=== PATIENT | male | born 1965 | race Caucasian/White ===

== ENCOUNTER 2018-10-02 09:07 | Emergency (ER) | payer BC ==
[2018-10-02] MEDS ORDERED: NORMAL SALINE 1000 ML 1,000 ML IV ONE (09:20)
--- NOTE | 2018-10-02 09:20 | ER Document Report ---
ED Medical Screen (RME) - General Chief Complaint: Headache Stated Complaint: HEADACHE, RINGING IN EARS Time Seen by Provider: 10/02/18 09:15 Notes: Patient is a 53-year-old male that presents to the emergency department for chief complaint of headache. Patient reports his been having ringing in his ears for about 3 months now, but started having headaches more recently, and now the past 2 days had some pain in his neck, he describes a headache is severe, no prior history of headaches until most recently, he is not waking up every 2 hours with a headache, Motrin initially was helping but it is not now. ROS: Other than noted above, the 12 point review of systems was reviewed with the patient and were negative, all pertinent findings are included in the HPI. PHYSICAL EXAMINATION: Vital signs reviewed. GENERAL: Well-appearing, well-nourished and in no acute distress. HEAD: Atraumatic, normocephalic. EYES: Pupils equal round extraocular movements intact, conjunctiva are normal. ENT: Nares patent NECK: Normal range of motion CV: Heart regular rate and rhythm LUNGS: No respiratory distress Musculoskeletal: Normal range of motion NEUROLOGICAL: Normal speech PSYCH: Normal mood, normal affect. MDM: Patient seen and examined for rapid initial assessment. Vital signs reviewed. A comprehensive ED assessment and evaluation of the patient, analysis of test results and completion of the medical decision making process will be conducted by additional ED providers. *Note is created using voice recognition software and may contain spelling, syntax or grammatical errors. TRAVEL OUTSIDE OF THE [place] IN LAST 30 DAYS: No - Related Data Allergies/Adverse Reactions: No Known Allergies Allergy (Verified 10/02/18 09:09) Past Medical History - Social History Chew tobacco use (# tins/day): No Drug Abuse: None Renal/ Medical History: Denies: Hx Peritoneal Dialysis Past Surgical History: Reports: Hx Orthopedic Surgery Physical Exam - Vital signs Vitals: Temp Pulse Resp BP Pulse Ox 97.4 F 101 H 20 169/112 H 97 10/02/18 09:13 10/02/18 09:13 10/02/18 09:13 10/02/18 09:13 10/02/18 09:13 Course - Vital Signs Vital signs: Temp Pulse Resp BP Pulse Ox 97.4 F 101 H 20 169/112 H 97 10/02/18 09:13 10/02/18 09:13 10/02/18 09:13 10/02/18 09:13 10/02/18 09:13
[2018-10-02] MEDS ORDERED: DEXAMETHASONE SOD PHOS INJ 10 MG/1 ML VIAL IV ONE (09:23)
[2018-10-02] MEDS ORDERED: MAGNESIUM SULFATE/D5W 1 GM/100 ML RTUPB IV ONE (09:23)
[2018-10-02] MEDS ORDERED: METOCLOPRAMIDE HCL INJ/PF 10 MG/2 ML SDV IV ONE (09:23)
[2018-10-02 10:15] LABS: ABSOLUTE EOSINOPHILS # (AUTO) 0.3 10^3/uL (0.0-0.6); ABSOLUTE MONOCYTES (AUTO) 0.3 10^3/uL (0.1-1.4); ABSOLUTE NEUT (AUTO) 3.9 10^3/uL (1.7-8.2); BASOPHILS % (AUTO) 0.8 % (0-2); HEMATOCRIT 48.6 % (37.9-51.0); HEMOGLOBIN 17.4 g/dL (13.5-17.0); LYMPHOCYTES % (AUTO) 18.1 % (13-45); MEAN CORPUSCULAR HEMOGLOBIN 30.3 pg (27.0-33.4); MEAN CORPUSCULAR HGB CONC 35.8 g/dL (32.0-36.0); MEAN CORPUSCULAR VOLUME 85 fl (80-97); PLATELET COUNT 278 10^3/uL (150-450); RED BLOOD COUNT 5.74 10^6/uL (4.35-5.55); RED CELL DISTRIBUTION WIDTH 13.4 % (11.5-14.0); SEGMENTED NEUTROPHILS % (AUTO) 70.1 % (42-78); TOTAL CELLS COUNTED % (AUTO) 100 %; WHITE BLOOD COUNT 5.6 10^3/uL (4.0-10.5)
--- NOTE | 2018-10-02 10:23 | RADIOLOGY REPORT (SQ) ---
EXAM DESCRIPTION: CT HEAD WITHOUT COMPLETED DATE/TIME: 10/02/2018 9:44 am REASON FOR STUDY: headache COMPARISON: None. TECHNIQUE: Axial images acquired through the brain without intravenous contrast. Images reviewed wi th bone, brain and subdural windows. Additional sagittal and coronal reconstructions were generated. Images stored on PACS. All CT scanners at this facility use dose modulation, iterative reconstruction, and/or weight based d osing when appropriate to reduce radiation dose to as low as reasonably achievable (ALARA). [facility]: Dose Right [facility]: CareDose [facility]: Dose Right [facility]: Teradose 4D [facility]: [employer] RADIATION DOSE: CT Rad equipment meets quality standard of care and radiation dose reduction techniq ues were employed. CTDIvol: 53.2 mGy. DLP: 964 mGy-cm. mGy. LIMITATIONS: None. FINDINGS: VENTRICLES: Normal size and contour. CEREBRUM: No masses. No hemorrhage. No midline shift. No evidence for acute infarction. Normal gra y/white matter differentiation. No areas of low density in the white matter. CEREBELLUM: No masses. No hemorrhage. No alteration of density. No evidence for acute infarction. EXTRAAXIAL SPACES: No fluid collections. No masses. ORBITS AND GLOBE: No intra- or extraconal masses. Normal contour of globe without masses. CALVARIUM: No fracture. PARANASAL SINUSES: No fluid or mucosal thickening. SOFT TISSUES: No mass or hematoma. OTHER: No other significant finding. IMPRESSION: No acute intracranial pathology. No noncontrast CT findings to explain headache. EVIDENCE OF ACUTE STROKE: NO. COMMENT: Quality ID # [id number]: Final reports with documentation of one or more dose reduction techniques (e.g., Automated exposure control, adjustment of the mA and/or kV according to patient size, use of iterative reconstruction technique) TECHNICAL DOCUMENTATION: JOB ID: [id number] [employer]- All Rights Reserved Reading location - IP/workstation name: [email or web address]
[2018-10-02 10:31] LABS: ANION GAP 9 (5-19); BLOOD UREA NITROGEN 17 mg/dL (7-20); CARBON DIOXIDE 26 mmol/L (22-30); CHLORIDE 102 mmol/L (98-107); GLUCOSE 215 mg/dL (75-110); POTASSIUM 3.6 mmol/L (3.6-5.0); SODIUM 137.4 mmol/L (137-145)
--- NOTE | 2018-10-02 10:31 | ER Document Report ---
ED Headache - General Chief Complaint: Headache Stated Complaint: HEADACHE, RINGING IN EARS Time Seen by Provider: 10/02/18 09:15 Primary Care Provider: [facility] [Provider Group] - Follow up tomorrow BRIANNE WILSON MD [NO LOCAL MD] - Follow up as needed Mode of Arrival: Ambulatory Information source: Patient Notes: Patient presents complaining of headache. Patient states that the headache started 3 weeks ago and was initially to the occipital area and would come and go multiple times each day. Patient states the headache became constant 3 days ago and reports global headache pain at this time. Patient does complain of nausea. Patient denies any vomiting. Patient does report some mild photophobia and phonophobia. Patient denies any head injury. Patient denies any family history of aneurysm. Patient does report that his brother has had a CVA when he was the patient's same age. Patient denies any previous history of headaches. Patient additionally complains of ringing in his ears for the past 3 months. Patient states the ringing has been a constant. Patient states that he does work around loud noises at work. TRAVEL OUTSIDE OF THE [place] IN LAST 30 DAYS: No - HPI Patient complains to provider of: Headache Onset: Other - 3 weeks Timing: Worse Quality of pain: Pressure, Throbbing Pain Level: 5 Associated symptoms: Nausea/vomiting - Nausea, Photophobia. denies: Dizzy, Fever, Neck pain, Stiff neck Exacerbated by: Light, Noise - Related Data Allergies/Adverse Reactions: No Known Allergies Allergy (Verified 10/02/18 09:09) Past Medical History - General Information source: Patient - Social History Smoking Status: Current Every Day Smoker Chew tobacco use (# tins/day): No Smoking Education Provided: Yes Drug Abuse: None Occupation: [employer] Family History: None Patient has suicidal ideation: No Patient has homicidal ideation: No - Medical History Medical History: Negative Renal/ Medical History: Denies: Hx Peritoneal Dialysis Past Surgical History: Reports: Hx Orthopedic Surgery Review of Systems - Review of Systems Constitutional: No symptoms reported. denies: Fever, Recent illness EENT: Other - ringing in ears x 3 months. denies: Nose congestion, Nose discharge Cardiovascular: No symptoms reported. denies: Dizziness, Lightheaded Respiratory: No symptoms reported. denies: Cough, Short of breath Gastrointestinal: No symptoms reported, Nausea. denies: Abdominal pain, Vomiting Genitourinary: No symptoms reported Male Genitourinary: No symptoms reported Musculoskeletal: Neck pain - Lateral neck discomfort. denies: Back pain Skin: No symptoms reported. denies: Rash Hematologic/Lymphatic: No symptoms reported Neurological/Psychological: Headaches. denies: Confusion, Weakness, Lost consciousness Physical Exam - Vital signs Vitals: Temp Pulse Resp BP Pulse Ox 97.4 F 101 H 20 169/112 H 97 10/02/18 09:13 10/02/18 09:13 10/02/18 09:13 10/02/18 09:13 10/02/18 09:13 - General General appearance: Appears well, Alert In distress: None - HEENT Head: Normocephalic, Atraumatic Eyes: Normal Conjunctiva: Normal Extraocular movements intact: Yes Eyelashes: Normal Pupils: PERRL Fundascopic: Normal Nerve palsy: No Visual singh normal: Yes Ears: Normal External canal: Normal Tympanic membrane: Normal Nasal: Normal Mouth/Lips: Normal Mucous membranes: Normal Pharynx: Normal. No: Erythema Neck: Normal, Supple. No: Brudzinski, Lymphadenopathy, Meningismus - Respiratory Respiratory status: No respiratory distress Chest status: Nontender Breath sounds: Normal. No: Rales, Rhonchi, Stridor, Wheezing Chest palpation: Normal - Cardiovascular Rhythm: Regular Heart sounds: S1 appreciated, S2 appreciated Murmur: No - Abdominal Inspection: Normal Distension: No distension Bowel sounds: Normal Tenderness: Nontender - Back Back: Normal, Nontender. No: CVA tenderness - Extremities General upper extremity: Normal inspection, Nontender, Normal ROM General lower extremity: Normal inspection, Nontender, Normal ROM - Neurological Neuro grossly intact: Yes Cognition: Normal Orientation: AAOx4 Rachelle Coma Scale Eye Opening: Spontaneous Rachelle Coma Scale Verbal: Oriented Rachelle Coma Scale Motor: Obeys Commands Rachelle Coma Scale Total: 15 Speech: Normal. No: Dysarthria, Expressive aphasia, Receptive aphasia Cranial nerves: Normal. No: Facial palsy, Gaze palsy, Sensory deficit, Tongue deviation Cerebellar coordination: Normal, Heel-rust, Finger-nose rhombey, Rapid alt. movements Motor strength normal: LUE, RUE, LLE, RLE Additional motor exam normals: Equal genetic supervisor. No: Weakness Sensory: Normal - Psychological Associated symptoms: Normal affect, Normal mood - Skin Skin Temperature: Warm Skin Moisture: Dry Skin Color: Normal Course - Re-evaluation Re-evalutation: 10/02/18 11:[address] [place] who states that patient does not have any findings worrisome for CVA or aneurysm at this time. 10/02/18 11:43 Patient reports headache pain is down to a 3/5 scale. 10/02/18 12:32 Patient reports that headache pain is almost resolved at this time. Patient without any acute findings on CT scan here today. Dr. Debora Williamson was consulted and did evaluate patient. Discussed with patient the concern about not being able to completely rule out subarachnoid hemorrhage without performing a lumbar puncture. Risks versus benefits were discussed with patient and patient declines LP at this time. Patient does have findings that support tension headache given the left-sided posterior neck muscle tenderness at insertion point. Dr. Williamson does not recommend any additional testing at this time. Patient is agreeable with discharge plan of care at this time. The patient presents with headache without signs of stroke, infection, or other serious etiology. The patient is neurologically intact. Given the extremely low risk of these diagnoses further testing and evaluation for these possibilities does not appear to be indicated at this time. The patient has been instructed to re turn tomorrow for repeat examination or sooner for any worsening of symptoms. 10/02/18 13:01 RN reports that she missed the order for the additional pain medication prior to patient's discharge. - Vital Signs Vital signs: Temp Pulse Resp BP Pulse Ox 98.0 F 73 20 197/118 H 89 L 10/02/18 12:51 10/02/18 12:51 10/02/18 09:13 10/02/18 12:51 10/02/18 12:51 - Laboratory Result Diagrams: 10/02/18 10:00 10/02/18 10:00 Laboratory results interpreted by me: 10/02/18 10/02/18 10:00 10:00 RBC 5.74 H Hgb 17.4 H Glucose 215 H 10/02/18 12:32 Labs- Entire Visit 10/02/18 10/02/18 10:00 10:00 WBC 5.6 RBC 5.74 H Hgb 17.4 H Hct 48.6 MCV 85 MCH 30.3 MCHC 35.8 RDW 13.4 Plt Count 278 Seg Neutrophils % 70.1 Lymphocytes % 18.1 Monocytes % 6.0 Eosinophils % 5.0 Basophils % 0.8 Absolute Neutrophils 3.9 Absolute Lymphocytes 1.0 Absolute Monocytes 0.3 Absolute Eosinophils 0.3 Absolute Basophils 0.0 Sodium 137.4 Potassium 3.6 Chloride 102 Carbon Dioxide 26 Anion Gap 9 BUN 17 Creatinine 1.25 Est GFR ( Amer) > 60 Est GFR (Non-Af Amer) > 60 Glucose 215 H Calcium 10.0 Magnesium 2.1 - Diagnostic Test Radiology reviewed: Reports reviewed Discharge - Discharge Clinical Impression: Elevated blood pressure reading, Elevated blood sugar Headache Qualifiers: Headache type: unspecified Headache chronicity pattern: unspecified pattern Intractability: not intractable Qualified Code(s): R51 - Headache Condition: Stable Disposition: HOME, SELF-CARE Instructions: Headache ([facility]), Reglan ([facility]), Toradol Injection ([facility]) Additional Instructions: Return tomorrow for repeat examination, or immediately for any new or worsening symptoms Followup with your primary care provider, call tomorrow to make a followup appointment Your blood pressure and blood sugar were elevated today. You should follow-up with your primary doctor to have these rechecked this week. Eat a low sodium, low concentrated sweets diet. Prescriptions: Metaxalone [Skelaxin 800 mg Tablet] 800 mg PO ASDIR PRN #15 tablet PRN Reason: Naproxen [Naprosyn 250 Nmg Tablet] 1 tab PO BID #14 tablet Forms: Smoking Cessation Education, Return to Work Referrals: BRIANNE WILSON MD [NO LOCAL MD] - Follow up as needed [facility] [[facility] - Follow up tomorrow
[2018-10-02] MEDS ORDERED: DIPHENHYDRAMINE HCL 50 MG/ML VIAL IV ONE (10:39)
--- NOTE | 2018-10-02 11:31 | RADIOLOGY REPORT (SQ) ---
EXAM DESCRIPTION: CTA HEAD; CTA NECK COMPLETED DATE/TIME: 10/02/2018 11:14 am REASON FOR STUDY: MERCER, ringing in ears COMPARISON: None. TECHNIQUE: Post IV contrast scanning, thin section axial imaging through the brain to evaluate the a rterial structures. Source and MIP images are saved and reviewed on PACS. Advanced 3D imaging as volume-rendering, MIPs, SSD performed? yes Post IV contrast scanning, thin section axial imaging through the neck and carotid bifurcations to ev aluate the arterial structures. Source and MIP images are saved and reviewed on PACS. Advanced 3D imaging as volume-rendering, MIPs, SSD performed? yes All CT scanners at this facility use dose modulation, iterative reconstruction, and/or weight based d osing when appropriate to reduce radiation dose to as low as reasonably achievable (ALARA). [facility]: Dose Right [facility]: CareDose [facility]: Dose Right [facility]: Teradose 4D [facility]: [employer] CONTRAST TYPE AND DOSE: contrast/concentration: Isovue 350.00 mg/ml; Total Contrast Delivered: 70.0 ml; Total Saline Delivered: 75.0 ml RENAL FUNCTION: Creatinine 1.25 RADIATION DOSE: 45 mGy LIMITATIONS: None. FINDINGS: AORTIC ARCH: Discrete origins of the right brachiocephalic artery, left common carotid, a nd left subclavian arteries. No thoracic aortic dissection in the field of view. Adjacent mediastin al structures and lung apices unremarkable. RIGHT EXTRACRANIAL CAROTID: Widely patent. No stenosis at the right carotid bifurcation. No CTA ev idence of cervical carotid dissection. LEFT EXTRACRANIAL CAROTID: Widely patent. No stenosis at the left carotid bifurcation. No CTA evid ence of cervical carotid dissection. RIGHT CERVICAL VERTEBRAL ARTERY: Widely patent. No dissection. LEFT CERVICAL VERTEBRAL ARTERY: Widely patent. No dissection. [place]: The anterior, middle, posterior cerebral arteries are all patent. No evidence of a neurysm or focal stenosis. POSTERIOR CIRCULATION: The distal vertebral arteries are patent as is the basilar artery. No aneurysm . BRAIN: No gross enhancing lesions as visualized. The superior cerebral hemispheres are not included in the field of view. BONES: Intact as visualized. SINUSES: No fluid or mucosal thickening. Mastoid air cells are clear. OTHER: Neck soft tissues are unremarkable. Cervical spine degenerative disc changes at C5-6 and C6-7 Report discussed with Jyoti Haddad in the emergency room IMPRESSION: NO CTA EVIDENCE OF STENOSIS OR ANEURYSM OF THE [place]. NO CTA EVIDENCE OF CAROTID STENOSIS OR CERVICAL CAROTID OR CERVICAL VERTEBRAL ARTERY DISSECTION REPORT DISCUSSED WITH THE EMERGENCY ROOM PROVIDER TECHNICAL DOCUMENTATION: JOB ID: [id number] Quality ID # [id number]: Final reports with documentation of one or more dose reduction techniques (e.g., Au tomated exposure control, adjustment of the mA and/or kV according to patient size, use of iterative reconstruction technique) 2010 [employer] [place]- All Rights Reserved Reading location - IP/workstation name: [email or web address]
--- NOTE | 2018-10-02 11:31 | RADIOLOGY REPORT (SQ) ---
EXAM DESCRIPTION: CTA HEAD; CTA NECK COMPLETED DATE/TIME: 10/02/2018 11:14 am REASON FOR STUDY: MERCER, ringing in ears COMPARISON: None. TECHNIQUE: Post IV contrast scanning, thin section axial imaging through the brain to evaluate the a rterial structures. Source and MIP images are saved and reviewed on PACS. Advanced 3D imaging as volume-rendering, MIPs, SSD performed? yes Post IV contrast scanning, thin section axial imaging through the neck and carotid bifurcations to ev aluate the arterial structures. Source and MIP images are saved and reviewed on PACS. Advanced 3D imaging as volume-rendering, MIPs, SSD performed? yes All CT scanners at this facility use dose modulation, iterative reconstruction, and/or weight based d osing when appropriate to reduce radiation dose to as low as reasonably achievable (ALARA). [facility]: Dose Right [facility]: CareDose [facility]: Dose Right [facility]: Teradose 4D [facility]: [employer] CONTRAST TYPE AND DOSE: contrast/concentration: Isovue 350.00 mg/ml; Total Contrast Delivered: 70.0 ml; Total Saline Delivered: 75.0 ml RENAL FUNCTION: Creatinine 1.25 RADIATION DOSE: 45 mGy LIMITATIONS: None. FINDINGS: AORTIC ARCH: Discrete origins of the right brachiocephalic artery, left common carotid, a nd left subclavian arteries. No thoracic aortic dissection in the field of view. Adjacent mediastin al structures and lung apices unremarkable. RIGHT EXTRACRANIAL CAROTID: Widely patent. No stenosis at the right carotid bifurcation. No CTA ev idence of cervical carotid dissection. LEFT EXTRACRANIAL CAROTID: Widely patent. No stenosis at the left carotid bifurcation. No CTA evid ence of cervical carotid dissection. RIGHT CERVICAL VERTEBRAL ARTERY: Widely patent. No dissection. LEFT CERVICAL VERTEBRAL ARTERY: Widely patent. No dissection. [place]: The anterior, middle, posterior cerebral arteries are all patent. No evidence of a neurysm or focal stenosis. POSTERIOR CIRCULATION: The distal vertebral arteries are patent as is the basilar artery. No aneurysm . BRAIN: No gross enhancing lesions as visualized. The superior cerebral hemispheres are not included in the field of view. BONES: Intact as visualized. SINUSES: No fluid or mucosal thickening. Mastoid air cells are clear. OTHER: Neck soft tissues are unremarkable. Cervical spine degenerative disc changes at C5-6 and C6-7 Report discussed with Jyoti Haddad in the emergency room IMPRESSION: NO CTA EVIDENCE OF STENOSIS OR ANEURYSM OF THE [place]. NO CTA EVIDENCE OF CAROTID STENOSIS OR CERVICAL CAROTID OR CERVICAL VERTEBRAL ARTERY DISSECTION REPORT DISCUSSED WITH THE EMERGENCY ROOM PROVIDER TECHNICAL DOCUMENTATION: JOB ID: [id number] Quality ID # [id number]: Final reports with documentation of one or more dose reduction techniques (e.g., Au tomated exposure control, adjustment of the mA and/or kV according to patient size, use of iterative reconstruction technique) 2010 [employer]- All Rights Reserved Reading location - IP/workstation name: [email or web address]
[2018-10-02] MEDS ORDERED: KETOROLAC TROMETHAMINE INJ/PF 30 MG/1 ML SDV IV ONE (11:42)
--- NOTE | 2018-10-02 12:17 | ER Document Report ---
Doctor's Note Notes: 10/02/18 12:14 Patient seen and evaluated. He states he has significantly improved from when he presented to the ER. He states the headache has almost completely resolved. He only has some mild throbbing and is frontal region. He denies any vision changes numbness or weakness. I reviewed his CT scans which are unremarkable. Patient does complain of some neck stiffness and has some focal tenderness at the insertion site of his left paracervical muscles on the occiput. Patient does not have any meningismus. He has no leukocytosis to suggest acute meningitis. I did discuss risks and benefits of performing a lumbar puncture today to completely rule out subarachnoid hemorrhage given that he has no history of migraines in the past. Patient does not wish to have lumbar puncture performed. He understands that there is a small chance of missing subarachnoid hemorrhage without performing lumbar puncture however given his almost complete resolution of symptoms and well appearance I am not highly suspicious of subarachnoid hemorrhage. I did tell patient if his symptoms worsen that he should return emergently to the ER for further management including lumbar puncture. Patient was encouraged on good hydration as well as Tylenol, Motrin treatment at home. He will follow with primary care for close reevaluation. His headache is likely migrainous and tension in nature. Agree with other plan of care and assessment performed.
[2018-10-02 12:57] VITALS: BP 197/118
--- NOTE | 2018-10-02 14:45 | EKG REPORT ---
SEVERITY:- ABNORMAL ECG - SINUS RHYTHM LEFT ANTERIOR FASCICULAR BLOCK LEFT VENTRICULAR HYPERTROPHY : Confirmed by: Aileen Pitt MD 02-Oct-2018 14:44:29
== END 2018-10-02 12:58 | disposition home or self-care (01) ==
LOC: ER 09:07
DX: R51 Headache (principal); R03.0 Elevated blood-pressure reading, without diagnosis of hypertension; R73.9 Hyperglycemia, unspecified; R11.0 Nausea; H93.13 Tinnitus, bilateral; R11.2 Nausea with vomiting, unspecified; H53.149 Visual discomfort, unspecified; F17.200 Nicotine dependence, unspecified, uncomplicated
CPT/HCPCS: 93005; 99284; 96375; 96365; 36415; 83735; 85025; 80048; 70450; 70496; 70498; 93010; J1200; J2765; J3475; J7030; J1100

== ENCOUNTER 2018-10-03 11:51 | Emergency (ER) | payer BC ==
[2018-10-03] MEDS ORDERED: CLONIDINE HCL 0.2 MG TABLET PO ONE (13:18)
--- NOTE | 2018-10-03 13:19 | ER Document Report ---
ED Medical Screen (RME) - General Chief Complaint: Headache Stated Complaint: EARACHE/NECK PAIN Time Seen by Provider: 10/03/18 13:18 Mode of Arrival: Ambulatory Information source: Patient TRAVEL OUTSIDE OF THE [place] IN LAST 30 DAYS: No - HPI Patient complains to provider of: elevated BP; MERCER Onset: This morning - pt seen here yesterday for same. States BP still elevated and MERCER - Related Data Allergies/Adverse Reactions: No Known Allergies Allergy (Verified 10/03/18 13:00) Past Medical History - Social History Chew tobacco use (# tins/day): No Frequency of alcohol use: Occasional Drug Abuse: Marijuana Renal/ Medical History: Denies: Hx Peritoneal Dialysis Past Surgical History: Reports: Hx Orthopedic Surgery Physical Exam - Vital signs Vitals: Temp Pulse Resp BP Pulse Ox 98.0 F 88 18 176/110 H 97 10/03/18 12:08 10/03/18 12:08 10/03/18 12:08 10/03/18 12:08 10/03/18 12:08 Course - Vital Signs Vital signs: Temp Pulse Resp BP Pulse Ox 98.0 F 88 18 176/110 H 97 10/03/18 12:08 10/03/18 12:08 10/03/18 12:08 10/03/18 12:08 10/03/18 12:08
[2018-10-03 15:20] VITALS: BP 164/95
== END 2018-10-03 16:50 | disposition left against medical advice (07) ==
LOC: ER 11:51
DX: I10 Essential (primary) hypertension (principal); R51 Headache; F12.10 Cannabis abuse, uncomplicated; Z53.20 Procedure and treatment not carried out because of patient's decision for unspecified reasons
CPT/HCPCS: 99281